=== PATIENT | female | born 1990 | race Caucasian/White ===

== ENCOUNTER 2017-03-27 08:26 | Emergency (ER) | payer SELFPAY ==
[~2017-03-27] VITALS: Ht 154.9 cm; Wt 108.9 kg
[2017-03-27 09:15] VITALS: BP 137/94
== END 2017-03-27 09:15 | disposition home or self-care (01) ==
LOC: ED 08:26
DX: N93.9 Abnormal uterine and vaginal bleeding, unspecified (principal); R03.0 Elevated blood-pressure reading, without diagnosis of hypertension; R11.0 Nausea; R10.2 Pelvic and perineal pain; Z98.890 Other specified postprocedural states; Z98.51 Tubal ligation status
CPT/HCPCS: Q0162

== ENCOUNTER 2018-09-10 07:15 | Emergency (ER) | payer SELFPAY ==
[~2018-09-10] VITALS: Ht 154.9 cm; Wt 115.2 kg
[2018-09-10 07:58] VITALS: BP 130/79
== END 2018-09-10 07:58 | disposition home or self-care (01) ==
LOC: ED 07:15
DX: J02.9 Acute pharyngitis, unspecified (principal); M79.10 Myalgia, unspecified site; R53.1 Weakness